=== PATIENT | female | born 1985 | race Caucasian/White ===

== ENCOUNTER → 2019-09-16 | Outpatient (CLI) | payer MEDICAID ==
[2019-09-16 09:16] LABS: Basophils % (A) 0 %; Eosinophils # (A) 0.5 k/uL (0-0.7); Eosinophils % (A) 5 %; HCT 42.6 % (34.0-46.0); HGB 13.3 gm/dL (11.4-16.0); Lymphocytes # (A) 2.7 k/uL (1.0-4.8); Lymphocytes % (A) 26 %; MCH 26.8 pg (25.0-35.0); MCHC 31.2 g/dL (31.0-37.0); Mean Platelet Volume 7.5; Monocytes # (A) 0.4 k/uL (0-1.0); Monocytes % (A) 4 %; Neutrophils # (A) 6.5 k/uL (1.3-7.7); Neutrophils % (A) 63 %; Platelet Count 374 k/uL (150-450); RBC 4.96 m/uL (3.80-5.40); RDW 13.5 % (11.5-15.5); WBC 10.2 k/uL (3.8-10.6)
[2019-09-16 17:28] LABS: African American GFR (CKD) 97.4 (60.0-200.0); Albumin 4.7 g/dL (3.80-4.90); Albumin/Globulin Ratio 1.81 (1.60-3.17); Anion Gap 9.6 mmol/L (4.00-12.00); BUN/Creat Ratio 12.22 Ratio (12.00-20.00); Calcium 9.9 mg/dL (8.7-10.3); Carbon Dioxide 26.4 mmol/L (21.6-31.8); Chol/HDL Ratio 2.8; Globulin 2.6 g/dL (1.6-3.3); Potassium 4.8 mmol/L (3.5-5.5); Total Bilirubin 0.5 mg/dL (0.3-1.2); Total Protein 7.3 g/dL (6.2-8.2)
[2019-09-16 17:36] LABS: T4, Free (Free Thyroxine) 1.1 ng/dL (0.80-1.80)
== END | disposition home or self-care (01) ==
LOC: LABWHC1 08:44
PROVIDERS: ATTEND Family Medicine
DX: N94.6 Dysmenorrhea, unspecified (principal); E66.9 Obesity, unspecified
CPT/HCPCS: 36415; 80053; 80061; 84439; 84443; 84481; 85025

== ENCOUNTER → 2021-05-15 | Outpatient (CLI) | payer MEDICAID ==
[2021-05-15 11:09] LABS: Basophils # (A) 0.1 k/uL (0-0.2); Basophils % (A) 1 %; Eosinophils # (A) 0.3 k/uL (0-0.7); Eosinophils % (A) 3 %; HCT 36.4 % (34.0-46.0); HGB 12.3 gm/dL (11.4-16.0); Lymphocytes # (A) 3.5 k/uL (1.0-4.8); Lymphocytes % (A) 34 %; MCH 28.4 pg (25.0-35.0); MCHC 33.7 g/dL (31.0-37.0); MCV 84.1 fL (80.0-100.0); Mean Platelet Volume 7.6; Monocytes # (A) 0.4 k/uL (0-1.0); Monocytes % (A) 4 %; Neutrophils # (A) 5.8 k/uL (1.3-7.7); Neutrophils % (A) 56 %; Platelet Count 396 k/uL (150-450); RBC 4.33 m/uL (3.80-5.40); RDW 14.1 % (11.5-15.5); WBC 10.3 k/uL (3.8-10.6)
== END | disposition home or self-care (01) ==
LOC: LABPAT 09:38
PROVIDERS: ATTEND Obstetrics & Gynecology
DX: Z01.812 Encounter for preprocedural laboratory examination (principal)
CPT/HCPCS: 36415; 85025

== ENCOUNTER → 2021-05-15 | Outpatient (CLI) | payer MEDICAID ==
--- NOTE | 2021-05-16 12:27 | MM ---
Reason for exam: screening (asymptomatic). Baseline mammogram. History: Took hormonal contraceptives for 5 years. Physical Findings: Nurse did not find any significant physical abnormalities on exam. MG 3D Screening Mammo W/Cad Bilateral CC and MLO view(s) were taken. The breast tissue is extremely dense which could obscure a lesion on mammography. There is no discrete abnormality. ASSESSMENT: Negative, BI-RAD 1 RECOMMENDATION: Routine screening mammogram of both breasts at age 40. Some consider bilateral ultrasound surveillance in patient with extremely dense fibroglandular tissue.
== END | disposition home or self-care (01) ==
LOC: RADMAMWWP 09:34 → MERGE 09:40
PROVIDERS: ATTEND Obstetrics & Gynecology
DX: Z12.31 Encounter for screening mammogram for malignant neoplasm of breast (principal)
CPT/HCPCS: 77063; 77067

== ENCOUNTER 2021-05-22 06:39 | Day surgery (SDC) | payer MEDICAID ==
[2021-05-18 15:11] VITALS: BMI 36.6
[~2021-05-22 06:39] MED LIST: DEXAMETHASONE SOD PHOSPHATE 4 MG/ML 1 ML VIAL IV ONE; HYDROmorphone 0.5 MG/0.5 ML SYRINGE IVP PRN; LACTATED RINGERS 1,000 ML IV SCH; LIDOCAINE 1% (10MG/ML) FOR IV START INTRADERMA PRN; MIDAZOLAM 2 MG/2 ML VIAL IV PRN; ONDANSETRON 4 MG/2 ML VIAL IVP ONE
[2021-05-22] MEDS ORDERED: LACTATED RINGERS 1,000 ML IV ONE (07:14)
[2021-05-22] MEDS ORDERED: SCOPOLAMINE 1.5MG/72HR PATCH TRANSDERM ONE (07:14)
--- NOTE | 2021-05-22 07:21 | P.HPOB ---
History of Present Illness H&P Date: 05/22/21 Chief Complaint: menorrhagia 35 year old with heavy menses presents for D&C hysteroscopy and endometrial ablation with NovaSure. Review of Systems All systems: negative Constitutional: Denies chills, Denies fever Eyes: denies blurred vision, denies pain Ears, nose, mouth and throat: Denies headache, Denies sore throat Cardiovascular: Denies chest pain, Denies shortness of breath Respiratory: Denies cough Gastrointestinal: Denies abdominal pain, Denies diarrhea, Denies nausea, Denies vomiting Genitourinary: Denies dysuria, Denies hematuria Musculoskeletal: Denies myalgias Integumentary: Denies pruritus, Denies rash Neurological: Denies numbness, Denies weakness Psychiatric: Denies anxiety, Denies depression Endocrine: Denies fatigue, Denies weight change Past Medical History Past Medical History: Syncope, Thyroid Disorder Additional Past Medical History / Comment(s): "Low thyroid, no medication at this time." "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 History of Any Multi-Drug Resistant Organisms: None Reported Past Surgical History: No Surgical Hx Reported Additional Past Surgical History / Comment(s): [place] teeth extracted. Past Anesthesia/Blood Transfusion Reactions: No Reported Reaction Additional Past Anesthesia/Blood Transfusion Reaction / Comment(s): Mom PONV. Past Psychological History: No Psychological Hx Reported Smoking Status: Never smoker Past Alcohol Use History: Occasional Past Drug Use History: None Reported - Past Family History Mother Family Medical History: Cancer Additional Family Medical History / Comment(s): from Leukemia. Medications and Allergies Home Medications Medication Instructions Recorded Confirmed Type Ibuprofen [Motrin] 800 mg PO Q8HR PRN 05/18/21 05/18/21 History Multivitamins, Thera [Multivitamin 1 tab PO DAILY 05/18/21 05/18/21 History (formulary)] Vitamin C Gummy 1 tab PO DAILY 05/18/21 History Allergies Allergy/AdvReac Type Severity Reaction Status Date / Time No Known Allergies Allergy Verified 05/18/21 15:00 Exam Osteopathic Statement: *. No significant issues noted on an osteopathic structural exam other than those noted in the History and Physical/Consult. Vital Signs Temp Pulse Resp BP Pulse Ox 05/22/21 07:04 97.8 F 79 18 148/90 100 Intake and Output 05/21/21 05/22/21 05/22/21 22:59 06:59 14:59 Other: Weight 104.8 kg Heart: Regular rate and rhythm Lungs: Clear to auscultation bilaterally Abdomen: Soft, nontender Extremities: Negative Homans sign Assessment and Plan (1) Menorrhagia Current Visit: Yes Status: Acute Code(s): N92.0 - EXCESSIVE AND FREQUENT MENSTRUATION WITH REGULAR CYCLE SNOMED Code(s): 504897860 Plan: 1. D&C hysteroscopy, endometrial ablation with NovaSure
[2021-05-22] MEDS ORDERED: fentaNYL (PF) 50 MCG/ML 2 ML AMP ONE (07:47)
[2021-05-22] MEDS ORDERED: PROPOFOL 10 MG/ML 20 ML VIAL IV ONE (07:47)
[2021-05-22] MEDS ORDERED: MIDAZOLAM 2 MG/2 ML VIAL ONE (07:47)
[2021-05-22] MEDS ORDERED: LIDOCAINE 1% INJ 10MG/ML (20 ML MDV) ONE (07:47)
[2021-05-22] MEDS ORDERED: SUCCINYLCHOLINE CHLORIDE VIAL 200 MG/10 ML VIAL IV ONE (07:47)
[2021-05-22] MEDS ORDERED: KETOROLAC 15 MG/ML 1 ML VIAL ONE (07:47)
--- NOTE | 2021-05-22 08:26 | P.OP ---
Date of Procedure: 05/22/21 Preoperative Diagnosis: 1. menorrhagia Postoperative Diagnosis: 1. menorrhagia Procedure(s) Performed: D&C, hysteroscopy, endometrial ablation with NovaSure Anesthesia: RIKA Surgeon: Marilu Hutner Estimated Blood Loss (ml): 2 IV fluids (ml): 600 Urine output (ml): 50 Pathology: other (endometrial currettings) Condition: stable Disposition: PACU Operative Findings: Cavity length of 6.5 cm, width 4.5 cm, time of ablation 37 seconds at [address] Description of Procedure: Patient is taken the operating room where general anesthesia was obtained without difficulty. She was prepped and draped in normal sterile fashion dorsal lithotomy position, legs placed in the candy cane stirrups. Bladder was drained of all urine. Weighted speculum placed in the vagina and the anterior lip the cervix was grasped with serial tooth tenaculum. The uterus sounded to 9 cm and the cervix under 2.5 cm making the cavity length 6.5 cm. The cervix was dilated to #8 Hegar dilator. Hysteroscopy was then performed. Both ostia were visualized and there was a smooth contour of the uterus. Sharp curet was then gently used to obtain endometrial curettings. The NovaSure was introduced into the uterus with a cavity length of 6.5 cm, width 4.5 cm. after cavity assessment was passed, the time of ablation was 37 seconds at [address]. Hysteroscopy was again performed and adequate ablation was noted. All instruments removed from the vagina. Patient tolerated the procedure well, sponge and instrument counts were correct 2 and she was taken to recovery in stable condition.
[2021-05-22 08:41] VITALS: RESP 16; TEMP 98
[2021-05-22 09:42] VITALS: BP 134/79; PULSE 71
== END 2021-05-22 10:05 | disposition home or self-care (01) ==
LOC: OR 06:39
PROVIDERS: ATTEND Obstetrics & Gynecology
DX: N92.0 Excessive and frequent menstruation with regular cycle (principal); Z79.1 Long term (current) use of non-steroidal anti-inflammatories (NSAID)
CPT/HCPCS: 58563; 81025; 88305; J2250; J0330; J1100; J2405; J2001; J3010; J1885; J2704; J1170

== ENCOUNTER 2021-05-24 21:05 | Observation (INO) | payer MEDICAID ==
[2021-05-24] MEDS ORDERED: ONDANSETRON 4 MG/2 ML VIAL IVP STA (22:03)
[2021-05-24] MEDS ORDERED: HYDROmorphone 0.5 MG/0.5 ML SYRINGE IVP STA (22:03)
[2021-05-24] MEDS ORDERED: SODIUM CHLORIDE 0.9% 1,000 ML IV STA (22:03)
[2021-05-24] MEDS ORDERED: ACETAMINOPHEN TAB 500 MG TAB PO STA (22:04)
[2021-05-24 22:48] LABS: Basophils % (A) 0 %; Eosinophils # (A) 0.3 k/uL (0-0.7); Eosinophils % (A) 1 %; HCT 34.7 % (34.0-46.0); HGB 11.3 gm/dL (11.4-16.0); Lymphocytes # (A) 1.3 k/uL (1.0-4.8); Lymphocytes % (A) 6 %; MCH 28.1 pg (25.0-35.0); MCHC 32.5 g/dL (31.0-37.0); MCV 86.3 fL (80.0-100.0); Mean Platelet Volume 8.7; Monocytes # (A) 0.8 k/uL (0-1.0); Monocytes % (A) 4 %; Neutrophils # (A) 17.8 k/uL (1.3-7.7); Neutrophils % (A) 88 %; Platelet Count 280 k/uL (150-450); RBC 4.02 m/uL (3.80-5.40); RDW 13.7 % (11.5-15.5); WBC 20.3 k/uL (3.8-10.6)
[2021-05-24 22:57] LABS: Amorphous Sediment,Urine Occasional /hpf; Appearance,Urine Cloudy (Clear); Bilirubin,Urine 1+ (Negative); Blood,Urine Large (Negative); Color,Urine Yellow; Glucose,Urine (UA) Negative (Negative); Ketones,Urine 1+ (Negative); Leukocyte Esterase,Urine Large (Negative); Mucus,Urine Occasional /hpf; Nitrite,Urine Negative (Negative); PH, Urine 6.5 (5.0-8.0); Protein,Urine 1+ (Negative); RBC,Urine 35 /hpf (0-5); Specific Gravity,Urine 1.028 (1.001-1.035); Squamous Epithelial Cell,Urine 2 /hpf (0-4); WBC,Urine 61 /hpf (0-5)
[2021-05-24 22:58] LABS: ALT 13 U/L (4-34); AST 16 U/L (14-36); African American GFR (CKD) >90 (>60 ml/min/1.73 sqM); Albumin 3.8 g/dL (3.5-5.0); Alkaline Phosphatase 97 U/L (38-126); Anion Gap 10 mmol/L; Blood Urea Nitrogen 13 mg/dL (7-17); Calcium 9.3 mg/dL (8.4-10.2); Carbon Dioxide 19 mmol/L (22-30); Chloride 106 mmol/L (98-107); Glucose 126 mg/dL (74-99); Lipase 53 U/L (23-300); Non-African American GFR(CKD) >90 (>60 ml/min/1.73 sqM); Sodium 135 mmol/L (137-145); Total Protein 7.1 g/dL (6.3-8.2)
--- NOTE | 2021-05-24 23:37 | CT ---
EXAMINATION TYPE: CT abdomen pelvis w con DATE OF EXAM: 05/24/2021 COMPARISON: None HISTORY: RUQ pain and fever after recent D&C /ablation on 05-22-21 CT DLP: 1660.2 mGycm Automated exposure control for dose reduction was used. CONTRAST: Performed with IV Contrast, patient injected with 100 mL of Isovue 300. Images obtained from the diaphragm to the floor the pelvis with IV contrast. The lung bases are clear of consolidation. There is no pleural effusion. Heart size is normal. There is no pericardial effusion. Liver spleen stomach pancreas gallbladder appear normal. The bile ducts a re nondilated. There is no adrenal mass. Kidneys show satisfactory contrast opacification. There is no hydronephrosi s. Ureters are not dilated. Appendix appears normal. There is no retroperitoneal adenopathy. Bladder distends smoothly. There is no inguinal hernia. Uterus is anteverted. There is some enlargement of th e endometrial cavity with fluid. There are small air bubble in the uterine fundus. There is no free f luid in the pelvis. There is no adnexal mass. There is no mesenteric edema. There is no ascites or free air. There is no bowel obstruction. The lumbar vertebra have fairly normal spacing and alignment. There is bilateral L5 spondylolysis wit hout spondylolisthesis. Bony pelvis is intact. Hip joints are intact. IMPRESSION: Changes in the uterine cavity consistent with recent surgery. There is fluid and small air bubble in the endometrial cavity that raises the possibility of endometritis. No significant free fluid in the pelvis. Normal appendix. Small bilateral ovarian cysts.
--- NOTE | 2021-05-24 23:55 | ED ---
Abdominal Pain HPI - General Chief Complaint: Abdominal Pain Stated Complaint: Post Op Abd Pain Time Seen by Provider: 05/24/21 21:24 Source: patient Mode of arrival: ambulatory Limitations: no limitations - History of Present Illness Initial Comments: 35 year-old female patient presents to the emergency department for evaluation of generalized abdominal pain and fever. States she had uterine ablation with D&C on Saturday with Dr. Hunter. She developed fever yesterday around 2pm. States that gradually her abdominal pain worsened. States it started as lower abdominal cramping and generally worsened to include her entire abdomen and back. She is unable to take deep breaths or move without significant pain to the abdomen. She reports some nausea, denies vomiting. Denies any hematuria, dysuria, urinary urgency, or frequency. Denies significant cough. States she does have some thin, watery, bloody discharge from the vagina. She did have an episode of diarrhea last night. No further episodes. - Related Data Home Medications Medication Instructions Recorded Confirmed Ibuprofen [Motrin] 800 mg PO Q8HR PRN 05/18/21 05/18/21 Multivitamins, Thera [Multivitamin 1 tab PO DAILY 05/18/21 05/18/21 (formulary)] Vitamin C Gummy 1 tab PO DAILY 05/18/21 Previous Rx's Medication Instructions Recorded Ibuprofen [Motrin] 600 mg PO Q6HR PRN #30 tab 05/22/21 Allergies Allergy/AdvReac Type Severity Reaction Status Date / Time No Known Allergies Allergy Verified 05/24/21 21:17 Review of Systems ROS Statement: Those systems with pertinent positive or pertinent negative responses have been documented in the HPI. ROS Other: All systems not noted in ROS Statement are negative. Past Medical History Past Medical History: Syncope Additional Past Medical History / Comment(s): arrythmia tacycardia to bradycar adriane, shingles, History of Any Multi-Drug Resistant Organisms: None Reported Past Surgical History: No Surgical Hx Reported Smoking Status: Never smoker Past Alcohol Use History: Occasional Past Drug Use History: None Reported General Exam Limitations: no limitations General appearance: alert, in no apparent distress, other (This is a well- developed, well-nourished adult female patient in mild distress related to pain.) Eye exam: Present: normal appearance, PERRL, EOMI. Absent: scleral icterus, conjunctival injection, periorbital swelling ENT exam: Present: normal exam, normal oropharynx, mucous membranes moist Respiratory exam: Present: normal lung sounds bilaterally. Absent: respiratory distress, wheezes, rales, rhonchi, stridor Cardiovascular Exam: Present: normal rhythm, tachycardia, normal heart sounds. Absent: systolic murmur, diastolic murmur, rubs, gallop, clicks GI/Abdominal exam: Present: soft, tenderness (Generalized), normal bowel sounds. Absent: distended, guarding, rebound, rigid Neurological exam: Present: alert, oriented X3, CN II-XII intact Psychiatric exam: Present: normal affect, normal mood Skin exam: Present: warm, dry, intact, normal color. Absent: rash Course Vital Signs 05/24/21 05/24/21 05/25/21 21:12 22:17 00:35 Temperature 101.8 F H 98.1 F Pulse Rate 113 H 105 H 74 Respiratory 20 16 18 Rate Blood Pressure 112/68 118/78 114/70 O2 Sat by Pulse 97 97 98 Oximetry Medical Decision Making - Medical Decision Making 35-year-old female patient presented to the emergency department today for evaluation of generalized abdominal pain and fever. She is postop day #2 after having uterine ablation and D&C with Dr. Hunter. Physical examination did reveal generalized abdominal tenderness. No guarding. She was febrile upon arrival at 101.8. Labs reviewed and did reveal white blood cell count at 20.3 with left shift with neutrophils at 17.8. Lactic acid was 0.9. Urinalysis did show bloody contamination. Covid test was negative. CT abdomen and pelvis was obtained and did show uterine changes consistent with recent surgery, small air bubble in the uterine fundus fluid in the endometrial cavity which could be consistent with recent surgery or possibly endometritis. I did discuss the case with on-call [facility] [employer] Dr. Choudhury who was agreeable with starting broad spectrum antibiotics and admission for further evaluation and monitoring. Pain medication will be ordered. Findings and plan have been discussed with the patient. She is agreeable. Case discussed with my attending Dr. Tomas. - Lab Data Result diagrams: 05/24/21 22:20 05/24/21 22:20 Lab Results 05/24/21 05/24/21 05/24/21 Range/Units 22:20 22:20 22:20 WBC 20.3 H (3.8-10.6) k/uL RBC 4.02 (3.80-5.40) m/uL Hgb 11.3 L (11.4-16.0) gm/dL Hct 34.7 (34.0-46.0) % MCV 86.3 (80.0-100.0) fL MCH 28.1 (25.0-35.0) pg MCHC 32.5 (31.0-37.0) g/dL RDW 13.7 (11.5-15.5) % Plt Count 280 (150-450) k/uL MPV 8.7 Neutrophils % 88 % Lymphocytes % 6 % Monocytes % 4 % Eosinophils % 1 % Basophils % 0 % Neutrophils # 17.8 H (1.3-7.7) k/uL Lymphocytes # 1.3 (1.0-4.8) k/uL Monocytes # 0.8 (0-1.0) k/uL Eosinophils # 0.3 (0-0.7) k/uL Basophils # 0.0 (0-0.2) k/uL Sodium 135 L (137-145) mmol/L Potassium 4.0 (3.5-5.1) mmol/L Chloride 106 (98-107) mmol/L Carbon Dioxide 19 L (22-30) mmol/L Anion Gap 10 mmol/L BUN 13 (7-17) mg/dL Creatinine 0.66 (0.52-1.04) mg/dL Est GFR (CKD-EPI)AfAm >90 (>60 ml/min/1.73 sqM) Est GFR (CKD-EPI)NonAf >90 (>60 ml/min/1.73 sqM) Glucose 126 H (74-99) mg/dL Plasma Lactic Acid Walter (0.7-2.0) mmol/L Calcium 9.3 (8.4-10.2) mg/dL Total Bilirubin 1.0 (0.2-1.3) mg/dL AST 16 (14-36) U/L ALT 13 (4-34) U/L Alkaline Phosphatase 97 (38-126) U/L Total Protein 7.1 (6.3-8.2) g/dL Albumin 3.8 (3.5-5.0) g/dL Lipase 53 (23-300) U/L Urine Color Yellow Urine Appearance Cloudy H (Clear) Urine pH 6.5 (5.0-8.0) Ur Specific [place] 1.028 (1.001-1.035) Urine Protein 1+ H (Negative) Urine Glucose (UA) Negative (Negative) Urine Ketones 1+ H (Negative) Urine Blood Large H (Negative) Urine Nitrite Negative (Negative) Urine Bilirubin 1+ H (Negative) Urine Urobilinogen 3.0 (<2.0) mg/dL Ur Leukocyte Esterase Large H (Negative) Urine RBC 35 H (0-5) /hpf Urine WBC 61 H (0-5) /hpf Ur Squamous Epith Cells 2 (0-4) /hpf Amorphous Sediment Occasional H (None) /hpf Urine Mucus Occasional H (None) /hpf Coronavirus (PCR) (Not Detectd) 05/24/21 05/25/21 Range/Units 22:20 00:32 WBC (3.8-10.6) k/uL RBC (3.80-5.40) m/uL Hgb (11.4-16.0) gm/dL Hct (34.0-46.0) % MCV (80.0-100.0) fL MCH (25.0-35.0) pg MCHC (31.0-37.0) g/dL RDW (11.5-15.5) % Plt Count (150-450) k/uL MPV Neutrophils % % Lymphocytes % % Monocytes % % Eosinophils % % Basophils % % Neutrophils # (1.3-7.7) k/uL Lymphocytes # (1.0-4.8) k/uL Monocytes # (0-1.0) k/uL Eosinophils # (0-0.7) k/uL Basophils # (0-0.2) k/uL Sodium (137-145) mmol/L Potassium (3.5-5.1) mmol/L Chloride (98-107) mmol/L Carbon Dioxide (22-30) mmol/L Anion Gap mmol/L BUN (7-17) mg/dL Creatinine (0.52-1.04) mg/dL Est GFR (CKD-EPI)AfAm (>60 ml/min/1.73 sqM) Est GFR (CKD-EPI)NonAf (>60 ml/min/1.73 sqM) Glucose (74-99) mg/dL Plasma Lactic Acid Walter 0.9 (0.7-2.0) mmol/L Calcium (8.4-10.2) mg/dL Total Bilirubin (0.2-1.3) mg/dL AST (14-36) U/L ALT (4-34) U/L Alkaline Phosphatase (38-126) U/L Total Protein (6.3-8.2) g/dL Albumin (3.5-5.0) g/dL Lipase (23-300) U/L Urine Color Urine Appearance (Clear) Urine pH (5.0-8.0) Ur Specific [place] (1.001-1.035) Urine Protein (Negative) Urine Glucose (UA) (Negative) Urine Ketones (Negative) Urine Blood (Negative) Urine Nitrite (Negative) Urine Bilirubin (Negative) Urine Urobilinogen (<2.0) mg/dL Ur Leukocyte Esterase (Negative) Urine RBC (0-5) /hpf Urine WBC (0-5) /hpf Ur Squamous Epith Cells (0-4) /hpf Amorphous Sediment (None) /hpf Urine Mucus (None) /hpf Coronavirus (PCR) Not Detected (Not Detectd) - Radiology Data Radiology results: report reviewed, image reviewed CT abdomen and pelvis with contrast was obtained. Report was reviewed in its entirety. Impression by Dr. Christine shows changes in the uterine cavity c onsistent with recent surgery. There is fluid in small air bubble in the endometrial cavity that raises the possibility of endometritis. No significant free fluid in the pelvis. Normal appendix. Small bilateral ovarian cysts. Disposition Clinical Impression: Endometritis Disposition: ADMITTED IP TO THIS [facility] Condition: Serious Decision to Admit Reason: Admit from Decision Date: 05/25/21 Decision Time: 00:13
[2021-05-25] MEDS ORDERED: PIPERACILLIN-TAZOBACTAM 3.375 GM in SODIUM CHLORIDE 0.9% 100 ML IVPB STA ×2
[2021-05-25] MEDS ORDERED: ONDANSETRON 4 MG/2 ML VIAL IVP PRN (00:06)
[2021-05-25] MEDS ORDERED: NALOXONE 0.4 MG/ML 1 ML VIAL IV PRN (00:06)
[2021-05-25] MEDS: SODIUM CHLORIDE 0.9% 1,000 ML IV SCH ×3 (00:29→16:04)
[2021-05-25] MEDS ORDERED: PIPERACILLIN-TAZOBACTAM 3.375 GM in SODIUM CHLORIDE 0.9% 100 ML IVPB SCH ×3 (00:45)
--- NOTE | 2021-05-25 00:52 | XR ---
EXAMINATION TYPE: XR chest 2V DATE OF EXAM: 05/25/2021 COMPARISON: 04/17/2013 HISTORY: Fever TECHNIQUE: FINDINGS: Heart and mediastinum are normal. Lungs are clear. Diaphragm is normal. Bony thorax appears normal. Pulmonary vascularity is normal. IMPRESSION: Normal chest. No change.
[2021-05-25] MEDS: HYDROmorphone 0.5 MG/0.5 ML SYRINGE IVP PRN ×3 (03:06→12:23)
[2021-05-25] MEDS: ACETAMINOPHEN TAB 325 MG TAB PO PRN ×2 (04:45→14:37)
[2021-05-25 07:10] LABS: Basophils % (A) 0 %; Eosinophils # (A) 0.4 k/uL (0-0.7); Eosinophils % (A) 3 %; HCT 31.5 % (34.0-46.0); HGB 10.1 gm/dL (11.4-16.0); Lymphocytes % (A) 14 %; MCH 28.3 pg (25.0-35.0); MCHC 32.1 g/dL (31.0-37.0); MCV 88.1 fL (80.0-100.0); Monocytes # (A) 0.6 k/uL (0-1.0); Monocytes % (A) 4 %; Neutrophils # (A) 10.9 k/uL (1.3-7.7); Neutrophils % (A) 78 %; Platelet Count 238 k/uL (150-450); RBC 3.57 m/uL (3.80-5.40); RDW 13.8 % (11.5-15.5)
[2021-05-25] MEDS ORDERED: GENTAMICIN PER PHARMACY MISCELLANE PRN (07:55)
[2021-05-25] MEDS: CLINDAMYCIN 900 MG in DEXTROSE 5% IN WATER 50 ML IVPB SCH ×4 (08:29→16:03)
[2021-05-25] MEDS: IBUPROFEN 600 MG TAB PO PRN ×2 (08:29→16:05)
[2021-05-25] MEDS: GENTAMICIN 400 MG in SODIUM CHLORIDE 0.9% 100 ML IVPB SCH (09:50)
--- NOTE | 2021-05-25 11:57 | P.HPOB ---
History of Present Illness H&P Date: 05/25/21 Chief Complaint: Abdominal pain, fever This is a 35 y.o. female, 3, para 2, who presented to ER last night complaining of worsening abdominal pain and fever. She had a D&C, hysteroscopy and Novasure endometrial ablation by Dr. Hunter on 05/22/2021. She started noti cing a fever on 05/23 and then worsening abdominal pain on 05/24. She states her whole abdomen hurts, but worst in her lower abdomen. Denies and difficulty with urination or bowel movements. Denies any difficulty breathing other than it hurts her abdomen to take a deep breath. Since her admission, the pain medication helps her pain, but it is back as soon as the medication wears off. CT scan showed small amount of air and some fluid within the endometrium, but otherwise it was negative. Her WBC count was 20,000. OB Hx: . 2 vaginal deliveries. 1 miscarriage, no D&C. 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 . 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 Hunter) Past Anesthesia/Blood Transfusion Reactions: No Reported Reaction Past Psychological History: No Psychological Hx Reported Smoking Status: Never smoker Past Alcohol Use History: Occasional Past Drug Use History: None Reported - Past Family History Mother Family Medical History: Cancer Father Family Medical History: No Reported History Medications and Allergies Home Medications Medication Instructions Recorded Confirmed Type Multivitamins, Thera [Multivitamin 1 tab PO DAILY 05/18/21 05/25/21 History (formulary)] Vitamin C Gummy 1 tab PO DAILY 05/18/21 05/25/21 History Ibuprofen [Motrin] 600 mg PO Q6HR PRN #30 tab 05/22/21 05/25/21 Rx Allergies Allergy/AdvReac Type Severity Reaction Status Date / Time No Known Allergies Allergy Verified 05/24/21 21:17 Exam Osteopathic Statement: *. No significant issues noted on an osteopathic structural exam other than those noted in the History and Physical/Consult. Vital Signs Temp Pulse Pulse Resp BP BP Pulse Ox 05/25/21 08:10 98.1 F 76 16 110/71 98 05/25/21 03:09 97.9 F 60 18 101/64 99 05/25/21 00:35 98.1 F 74 18 114/70 98 05/24/21 22:17 105 H 16 118/78 97 05/24/21 21:12 101.8 F H 113 H 20 112/68 97 Intake and Output 05/24/21 05/25/21 05/25/21 22:59 06:59 14:59 Intake Total 620 240 Balance 620 240 Intake: Intake, IV Titration 620 Amount Piperacillin-Tazobactam 3 100 .375 gm In Sodium Chloride 0.9% 100 ml @ 200 mls/hr IVPB ONCE STA Rx#:[id number] Sodium Chloride 0.9% 1, 520 000 ml @ 130 mls/hr IV . Q7H42M [facility] Rx#:[id number] Oral 240 Other: Voiding Method Toilet # Voids 2 Weight 99.79 kg 106 kg Gen: well-developed well nourished female in no acute distress HEENT: with normal limits Heart: regular rate and rhythm Lungs: clear to auscultation bilaterally Abdomen: soft, diffusely tender, worse in lower abdomen [id number] serosanguinous discharge Extremities: neg. Raphael's Results Result Diagrams: 05/25/21 06:59 05/24/21 22:20 Abnormal Lab Results - Last 24 Hours (Table) 05/24/21 05/24/21 05/24/21 Range/Units 22:20 22:20 22:20 WBC 20.3 H (3.8-10.6) k/uL RBC (3.80-5.40) m/uL Hgb 11.3 L (11.4-16.0) gm/dL Hct (34.0-46.0) % Neutrophils # 17.8 H (1.3-7.7) k/uL Sodium 135 L (137-145) mmol/L Carbon Dioxide 19 L (22-30) mmol/L Glucose 126 H (74-99) mg/dL Urine Appearance Cloudy H (Clear) Urine Protein 1+ H (Negative) Urine Ketones 1+ H (Negative) Urine Blood Large H (Negative) Urine Bilirubin 1+ H (Negative) Ur Leukocyte Esterase Large H (Negative) Urine RBC 35 H (0-5) /hpf Urine WBC 61 H (0-5) /hpf Amorphous Sediment Occasional H (None) /hpf Urine Mucus Occasional H (None) /hpf 05/25/21 Range/Units 06:59 WBC 14.0 H (3.8-10.6) k/uL RBC 3.57 L (3.80-5.40) m/uL Hgb 10.1 L (11.4-16.0) gm/dL Hct 31.5 L (34.0-46.0) % Neutrophils # 10.9 H (1.3-7.7) k/uL Sodium (137-145) mmol/L Carbon Dioxide (22-30) mmol/L Glucose (74-99) mg/dL Urine Appearance (Clear) Urine Protein (Negative) Urine Ketones (Negative) Urine Blood (Negative) Urine Bilirubin (Negative) Ur Leukocyte Esterase (Negative) Urine RBC (0-5) /hpf Urine WBC (0-5) /hpf Amorphous Sediment (None) /hpf Urine Mucus (None) /hpf Microbiology - Last 24 Hours (Table) 05/24/21 22:20 Urine Culture - Preliminary Urine,Voided Chest x-ray: report reviewed CT scan - abdomen: report reviewed CT scan - pelvis: report reviewed Assessment and Plan (1) Endometritis Current Visit: Yes Status: Acute Code(s): N71.9 - INFLAMMATORY DISEASE OF UTERUS, UNSPECIFIED SNOMED Code(s): 05604992 Plan: Admission for IV antibiotics. Was initially started on Zosyn, but will switch to Clindamycin and Gentamycin. Will continue with pain control. WBC has come down to 14,000.
[2021-05-25] MEDS ORDERED: GENTAMICIN 80 MG/2 ML (MDV) VIAL ONE (22:59)
[2021-05-25] MEDS ORDERED: SODIUM CHLORIDE 0.9% 100 ML BAG ONE (22:59)
[2021-05-26] MEDS: CLINDAMYCIN 900 MG in DEXTROSE 5% IN WATER 50 ML IVPB SCH ×6 (00:50→16:00)
[2021-05-26] MEDS: IBUPROFEN 600 MG TAB PO PRN (05:49)
[2021-05-26] MEDS: SODIUM CHLORIDE 0.9% 1,000 ML IV SCH ×2 (07:20→07:58)
[2021-05-26 07:22] LABS: African American GFR (CKD) >90 (>60 ml/min/1.73 sqM); Non-African American GFR(CKD) >90 (>60 ml/min/1.73 sqM)
[2021-05-26 07:29] LABS: Basophils % (A) 0 %; Eosinophils # (A) 0.5 k/uL (0-0.7); Eosinophils % (A) 5 %; HGB 10.1 gm/dL (11.4-16.0); Lymphocytes # (A) 1.8 k/uL (1.0-4.8); Lymphocytes % (A) 16 %; MCHC 31.7 g/dL (31.0-37.0); MCV 88.2 fL (80.0-100.0); Mean Platelet Volume 8.2; Monocytes # (A) 0.5 k/uL (0-1.0); Monocytes % (A) 4 %; Neutrophils # (A) 8.1 k/uL (1.3-7.7); Neutrophils % (A) 74 %; Platelet Count 279 k/uL (150-450); RBC 3.62 m/uL (3.80-5.40); RDW 13.7 % (11.5-15.5)
[2021-05-26] MEDS ORDERED: SODIUM CHLORIDE 0.9% 1,000 ML IV SCH (08:15)
--- NOTE | 2021-05-26 08:23 | P.PN ---
Subjective Progress Note Date: 05/26/21 Principal diagnosis: Endometritis Patient states her pain is better than yesterday. She has not had much of an appetite since yesterday. She has not had a bowel movement since admission. She states she does still have some lower abdominal pain but not nearly as severe as yesterday. She has not used any Dilaudid since early yesterday. Objective - Vital Signs Vital signs: Vital Signs Temp 98 F 05/26/21 01:04 Pulse 71 05/26/21 01:04 Resp 18 05/26/21 01:04 BP 101/65 05/26/21 01:04 Pulse Ox 98 05/26/21 01:04 Intake & Output 05/25/21 05/26/21 05/26/21 18:59 06:59 18:59 Intake Total 240 Balance 240 Intake: Oral 240 Other: # Voids 3 3 1 - Constitutional General appearance: Present: no acute distress - Gastrointestinal Gastrointestinal Comment(s): Mildly tender throughout abdomen. No guarding or rebound is noted. General gastrointestinal: Present: hyperactive bowel sounds - Labs CBC & Chem 7: 05/26/21 06:08 05/26/21 06:08 Labs: Abnormal Lab Results - Last 24 Hours (Table) 05/26/21 Range/Units 06:08 WBC 11.0 H (3.8-10.6) k/uL RBC 3.62 L (3.80-5.40) m/uL Hgb 10.1 L (11.4-16.0) gm/dL Hct 32.0 L (34.0-46.0) % Neutrophils # 8.1 H (1.3-7.7) k/uL Microbiology - Last 24 Hours (Table) 05/24/21 23:00 Blood Culture - Preliminary Blood No Growth after 24 hours 05/24/21 22:20 Blood Culture - Preliminary Blood No Growth after 24 hours 05/24/21 22:20 Urine Culture - Preliminary Urine,Voided Assessment and Plan Assessment: Endometritis (1) Endometritis Current Visit: Yes Status: Acute Code(s): N71.9 - INFLAMMATORY DISEASE OF UTERUS, UNSPECIFIED SNOMED Code(s): 29570867 Plan: Will plan to continue antibiotics at least through today and possibly into tomorrow morning. Her white count has improved from 20,000 on admission down to 11,000 this morning. She has been afebrile since admission. I have advised her that I will check back later today this evening to see if she is able to go home.
[2021-05-26] MEDS: GENTAMICIN 400 MG in SODIUM CHLORIDE 0.9% 100 ML IVPB SCH (08:56)
[2021-05-26] MEDS ORDERED: LACTOBACILLUS ACIDOPH & BULGAR 1 EACH PACKET PO SCH (09:00)
[2021-05-26 14:18] VITALS: BP 119/73; PULSE 90; RESP 16; TEMP 98.5
--- NOTE | 2021-05-26 18:19 | P.DS ---
Providers Date of admission: 05/25/21 01:17 Expected date of discharge: 05/26/21 Attending physician: Delilah Choudhury Primary care physician: Etienne Gordon - Discharge Diagnosis(es) (1) Endometritis Current Visit: Yes Status: Acute Hospital Course: This is a 35-year-old female who recently underwent a dilation and curettage with hysteroscopy and NovaSure endometrial ablation by Dr. Hunter on 05/22/2021, who presented with abdominal pain, fever, and elevated white count. She was started on initially Zosyn from the ER and then switched to clindamycin and gentamicin for presumptive treatment of endometritis. Her white count went down to and 14,000 the first day and 11,000 the second day. Her pain significantly improved however she still has some lower cramping. Blood cultures are negative so far. Her urine culture did culture out greater than 100,000 of gram-negative bacilli, sensitivity and ID are still pending. Patient is anxious to go home. She will be sent home with Bactrim DS twice a day for 7 days. She is advised to follow up with Dr. Hunter in the office in approximately one week. If sensitivity shows that it is not sensitive to Bactrim, this will be changed. She is advised no intercourse until seen by Dr. Hunter. Patient Condition at Discharge: Serious Plan - Discharge Summary Discharge Rx Participant: Yes New Discharge Prescriptions: New Sulfamethox-Tmp 800-160Mg [Bactrim DS 800-160 mg] 1 tab PO Q12HR #14 tab No Action Multivitamins, Thera [Multivitamin (formulary)] 1 tab PO DAILY Vitamin C Gummy 1 tab PO DAILY Ibuprofen [Motrin] 600 mg PO Q6HR PRN #30 tab PRN Reason: Mild Pain Or Fever >= 100.5 Discharge Medication List Multivitamins, Thera [Multivitamin (formulary)] 1 tab PO DAILY 05/18/21 [History] Vitamin C Gummy 1 tab PO DAILY 05/18/21 [History] Ibuprofen [Motrin] 600 mg PO Q6HR PRN #30 tab 05/22/21 [Rx] Sulfamethox-Tmp 800-160Mg [Bactrim DS 800-160 mg] 1 tab PO Q12HR #14 tab 05/26/21 [Rx] Follow up Appointment(s)/Referral(s): Chris Gordon MD [Primary Care Provider] - 1-2 days Marilu Hunter DO [Doctor of Osteopathic Medicine] - 1 Week Activity/Diet/Wound Care/Special Instructions: Activity as tolerated. Diet as tolerated. May shower but no tub baths for 1 week. No intercourse for 1 week. Discharge Disposition: HOME SELF-CARE
[2021-05-26] MEDS ORDERED: SODIUM CHLORIDE 0.9% 100 ML BAG ONE (22:59)
[2021-05-26] MEDS ORDERED: GENTAMICIN 80 MG/2 ML (MDV) VIAL ONE (22:59)
== END 2021-05-26 18:44 | disposition home or self-care (01) ==
LOC: EC 21:05 → 6PED 05-25 01:17
PROVIDERS: ADMIT Obstetrics & Gynecology; ATTEND Obstetrics & Gynecology
DX: N71.9 Inflammatory disease of uterus, unspecified (principal); R00.1 Bradycardia, unspecified; R00.0 Tachycardia, unspecified; R11.0 Nausea; R19.7 Diarrhea, unspecified; N83.202 Unspecified ovarian cyst, left side; N83.201 Unspecified ovarian cyst, right side; B96.89 Other specified bacterial agents as the cause of diseases classified elsewhere; Z20.822 Contact with and (suspected) exposure to COVID-19; Z80.9 Family history of malignant neoplasm, unspecified; Z98.890 Other specified postprocedural states
CPT/HCPCS: 96361 ×2; 96365; 96366 ×2; 96367; 96376; 96375; 99285; 36415; 80053; 82565; 83605; 83690; 85025 ×3; 81001; 87040; 80170; 87086; 87077; 87186; 87635; 71046; 74177; G0378 ×2; J2543; J2405 ×2; J1580 ×2; J1170 ×2; Q9967

== ENCOUNTER → 2021-11-06 | Outpatient (CLI) | payer MEDICAID ==
[2021-11-06 14:19] LABS: Basophils # (A) 0.06 X 10*3/uL (0.00-0.10); Basophils % (A) 0.7 %; Eosinophils # (A) 0.39 X 10*3/uL (0.04-0.35); Eosinophils % (A) 4.2 %; HCT 37.6 % (37.2-46.3); HGB 11.8 g/dL (12.0-15.0); Immature Grans, Automated 0.2 %; Lymphocytes # (A) 2.76 X 10*3/uL (0.90-5.00); MCH 26.5 pg (27.0-32.0); MCHC 31.4 g/dL (32.0-37.0); MCV 84.3 fL (80.0-97.0); Mean Platelet Volume 10.8 fL (9.5-12.2); Monocytes # (A) 0.54 X 10*3/uL (0.20-1.00); Monocytes % (A) 5.9 %; NRBC Per 100 WBC 0 /100 WBCS (0.0-0.0); Neutrophils # (A) 5.42 X 10*3/uL (1.80-7.70); Platelet Count 340 X 10*3/uL (140-440); RBC 4.46 X 10*6/uL (4.10-5.20); RDW 15.1 % (11.5-14.5); WBC 9.19 X 10*3/uL (4.50-10.00)
[2021-11-06 15:53] LABS: Anion Gap 19.2 mmol/L (10.00-18.00); BUN/Creat Ratio 21.06 Ratio (12.00-20.00); Blood Urea Nitrogen 17.1 mg/dL (9.0-27.0); Calcium 9.9 mg/dL (8.7-10.3); Carbon Dioxide 16.2 mmol/L (20.0-27.5); Non-African American GFR(CKD) 93.2 (60.0-200.0); Potassium 4.8 mmol/L (3.5-5.5)
== END | disposition home or self-care (01) ==
LOC: LABPAT 08:22
PROVIDERS: ATTEND Obstetrics & Gynecology
DX: Z01.812 Encounter for preprocedural laboratory examination (principal)
CPT/HCPCS: 36415; 80048; 85025

== ENCOUNTER 2021-11-10 05:33 | Inpatient (IN) | payer MEDICAID ==
[2021-11-06 15:09] VITALS: BMI 36.6
[2021-11-10] MEDS ORDERED: ONDANSETRON 4 MG/2 ML VIAL IVP ONE (05:52)
[2021-11-10] MEDS ORDERED: LIDOCAINE 1% (10MG/ML) FOR IV START INTRADERMA PRN (05:52)
[2021-11-10] MEDS ORDERED: DEXAMETHASONE SOD PHOSPHATE 4 MG/ML 1 ML VIAL IV ONE (05:52)
[2021-11-10] MEDS ORDERED: HYDROmorphone 0.5 MG/0.5 ML SYRINGE IVP PRN (05:52)
[2021-11-10] MEDS ORDERED: MIDAZOLAM 2 MG/2 ML VIAL IV PRN (05:52)
[2021-11-10] MEDS: LACTATED RINGERS 1,000 ML IV SCH (06:04)
--- NOTE | 2021-11-10 06:04 | P.HPOB ---
History of Present Illness H&P Date: 11/10/21 Chief Complaint: menorrhagia 36 year old presents or Total laparoscopic hysterectomy bilateral salpingectomy using da caitlin and diagnostic cystosopy. She continues to have heavy and prolonged periods despite Novasure ablation last year. Review of Systems All systems: negative Constitutional: Denies chills, Denies fever Eyes: denies blurred vision, denies pain Ears, nose, mouth and throat: Denies headache, Denies sore throat Cardiovascular: Denies chest pain, Denies shortness of breath Respiratory: Denies cough Gastrointestinal: Denies abdominal pain, Denies diarrhea, Denies nausea, Denies vomiting Genitourinary: Denies dysuria, Denies hematuria Musculoskeletal: Denies myalgias Integumentary: Denies pruritus, Denies rash Neurological: Denies numbness, Denies weakness Psychiatric: Denies anxiety, Denies depression Endocrine: Denies fatigue, Denies weight change Past Medical History Past Medical History: Syncope Additional Past Medical History / Comment(s): PAST HX shingles, 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 MENSES WITH ENDOMETRIOSIS History of Any Multi-Drug Resistant Organisms: None Reported Past Surgical History: Uterine Ablation Additional Past Surgical History / Comment(s): U/A 05/2021- Past Anesthesia/Blood Transfusion Reactions: No Reported Reaction Smoking Status: Never smoker - Past Family History Mother Family Medical History: Cancer Father Family Medical History: No Reported History Medications and Allergies Home Medications Medication Instructions Recorded Confirmed Type No Known Home Medications 11/06/21 11/06/21 History Allergies Allergy/AdvReac Type Severity Reaction Status Date / Time No Known Allergies Allergy Verified 11/06/21 14:57 Exam Osteopathic Statement: *. No significant issues noted on an osteopathic structural exam other than those noted in the History and Physical/Consult. Heart: RRR Lungs: CTAB Abdomen: soft, nontender Extremeties: neg meredith's Assessment and Plan (1) Menorrhagia Current Visit: No Status: Acute Code(s): N92.0 - EXCESSIVE AND FREQUENT MENSTRUATION WITH REGULAR CYCLE SNOMED Code(s): 942038593 Plan: 1. Total laparoscopic hysterectomy bilateral salpingectomy using da caitlin and diagnostic cystosopy. possible JERMAINE BSO
[2021-11-10] MEDS ORDERED: MIDAZOLAM 2 MG/2 ML VIAL IVP ONE (06:59)
[2021-11-10] MEDS ORDERED: fentaNYL (PF) 50 MCG/ML 2 ML AMP IVP ONE (06:59)
[2021-11-10] MEDS ORDERED: SUCCINYLCHOLINE CHLORIDE 100 MG/5 ML SYR IV ONE (07:11)
[2021-11-10] MEDS ORDERED: ROPIVACAINE 5 MG/ML 30 ML VIAL ONE (07:11)
[2021-11-10] MEDS ORDERED: PROPOFOL 10 MG/ML 20 ML VIAL IV ONE (07:11)
[2021-11-10] MEDS ORDERED: NEOSTIGMINE 1 MG/ML 10 ML VIAL ONE (07:11)
[2021-11-10] MEDS ORDERED: HYDROmorphone (PF) 1 MG/ML ONE (07:11)
[2021-11-10] MEDS ORDERED: KETOROLAC 15 MG/ML 1 ML VIAL ONE (07:11)
[2021-11-10] MEDS ORDERED: fentaNYL (PF) 50 MCG/ML 2 ML AMP ONE (07:11)
[2021-11-10] MEDS ORDERED: ROCURONIUM 10 MG/ML (5 ML VIAL) IV ONE (07:11)
[2021-11-10] MEDS ORDERED: GLYCOPYRROLATE 0.2 MG/ML 2 ML VIAL ONE (07:11)
[2021-11-10] MEDS ORDERED: MIDAZOLAM 2 MG/2 ML VIAL ONE (07:11)
[2021-11-10] MEDS ORDERED: SODIUM CHLORIDE 0.9% (PF) 10 ML VIAL ONE (07:11)
[2021-11-10] MEDS ORDERED: LIDOCAINE 1% INJ 10MG/ML (20 ML MDV) ONE (07:11)
--- NOTE | 2021-11-10 07:46 | P.ANPRN ---
Procedure Note - Anesthesia - Nerve Block Performed Bilateral Erector Spinae Single Time Out Performed: Yes ([id number]) Date of Procedure: 11/10/21 Procedure Start Time: 06:59 Procedure Stop Time: 07:02 Indication: Acute Post-Operative Pain, Requested by Surgeon Specifically requested for management of pain by DrGilma: Marilu Hunter Sedation Type: Sedate with meaningful contact maintained Preparation: Sterile Prep Position: Prone Catheter: None Needle Types: Pajunk Needle Gauge: 21 Ultrasound used to visualize needle placement: Yes Ultrasound used to observe medication spread: Yes Injectate: 0.5% Ropivacaine (see comment for volume) (15cc 15cc nacl pf) Blood Aspirated: No Pain Paresthesia on Injection Noted: No Resistance on Injection: Normal Image Stored and Saved: Yes Events: Uneventful and Well Tolerated
[2021-11-10] MEDS ORDERED: BUPIVACAINE (PF) 0.25% 30 ML VIAL SQ ONE (08:09)
--- NOTE | 2021-11-10 09:11 | P.OP ---
Date of Procedure: 11/10/21 Preoperative Diagnosis: 1. Menorrhagia Postoperative Diagnosis: 1. Menorrhagia 2. Pelvic adhesions Procedure(s) Performed: Total laparoscopic hysterectomy bilateral salpingectomy and lysis of adhesions using da Gian and diagnostic cystoscopy Anesthesia: RIKA Surgeon: Marilu Hunetr Certified Phlebotomy Technician #1: Delilah Choudhury Estimated Blood Loss (ml): 50 IV fluids (ml): 600 Urine output (ml): 200 Pathology: other (Uterus, cervix, bilateral fallopian tubes) Condition: stable Disposition: PACU Operative Findings: Extensive pelvic adhesions, ovaries noted to be scarred to the sidewall and bowel Description of Procedure: Patient taken the operating room where general anesthesia was obtained without difficulty. She is prepped and draped in normal sterile fashion dorsal lithotomy position, legs placed in the Chas stirrups. Weighted speculum placed in the vagina and the anterior lip the cervix was grasped with single-tooth tenaculum. The uterus sounded to 8 cm and the cervix diameter was 3.5 cm. The appropriate manipulator tip and ring were placed on the Meera manipulator. The Meera manipulator was then placed in the uterus. Solis catheter was also placed. Attention was then turned to the abdomen and gloves were changed. A 5 mm supraumbilical incision was made the scalpel and a 5 mm optical trocar was placed under direct visualization. 10 cm to the right of this and 2 cm down a 5 mm incision was made and 8 mm da Gian port was placed under direct visualization. Same measurements on the opposite side of the patient's abdomen, the 5 mm incision was made and 8 mm da Gian port was placed under direct visualization. In the left upper quadrant a 10 mm incision was made and a 10 mm optical trocar was placed under direct visualization. The 5 mm optical trocar was then replaced with the 8 mm da Gian camera port. The robot was docked on patient's right side. The camera was introduced and then the monopolar curved scissor and [place] bipolar placed under direct visualization. I broke scrub and went to the physician console. The left mesosalpinx was cauterized with the [place] bipolar and cut with monopolar curved scissors to free the left fallopian tube which was then delivered through the assistant corporate secretary port. The left utero ovarian ligament and round ligament were cauterized with the [place] bipolar and cut with monopolar curved scissors. The posterior leaf of the broad ligament was taken down using the monopolar curved scissors. Anterior leaf of the broad ligament was then taken down using the monopolar curved scissors. The uterine artery was cauterized with the [place] bipolar and cut with monopolar curved scissors. The bladder flap was then started using the monopolar curved scissors. Attention was then turned to the right side of the patient's anatomy and the right mesosalpinx was cauterized with the [place] bipolar and cut with monopolar curved scissors to free the right fallopian tube which was then delivered through the assistant corporate secretary port. The right utero-ovarian ligament and round ligament were cauterized with the [place] bipolar and cut with monopolar curved scissors. Posterior leaf of the broad ligament was taken down using the monopolar curved scissors and the anterior leaf was taken down using the monopolar curved scissors. The uterine artery was cauterized the [place] bipolar cut with monopolar curved scissors. The bladder flap was then finished on this side. Anterior colpotomy was made using the monopolar curved scissors. The rest of the uterus was from the vaginal cuff by following the ring around with the monopolar curved scissors through the uterosacral ligaments back to the anterior portion. Once the uterus and cervix were amputated they were pulled through the vaginal cuff. Hemostasis was assured. The instruments were changed for the Cardier forcep and the cary suture cut. The vaginal cuff was then closed using O Vicryl suture in 4 different [id number] stitches. Hemostasis was again assured and the pelvis was irrigated. All instruments were removed from the abdomen and the robot was undocked. I scrubbed back in to perform a cystoscopy. There were jets from right ureteral orifice, but not the left. KUB will be ordered in recovery. The abdominal incisions were closed with 4-0 Vicryl in a subcuticular fashion. Patient tolerated the procedure well, sponge and instrument counts correct 2 and she was taken to recovery room in stable condition condition
[2021-11-10] MEDS ORDERED: LACTATED RINGERS 1,000 ML IV ONE (09:12)
--- NOTE | 2021-11-10 12:00 | CT ---
EXAMINATION TYPE: CT abdomen pelvis wo/w con DATE OF EXAM: 11/10/2021 HISTORY: ? Damage to left ureter during surgery/hysterectomy. Pain and nausea. CT DLP: 4884.9mGycm Automated Exposure Control for Dose Reduction was Utilized. CONTRAST: CT scan of the abdomen and pelvis is performed without oral and without and with IV Contrast, patient injected with 100 ml mL of Isovue 300. COMPARISON: Prior CT May 24, 2021 FINDINGS: LUNG BASES: Trace dependent effusion and associated moderate compressive atelectasis. LIVER/GB: No significant abnormality is appreciated. PANCREAS: No significant abnormality is seen. SPLEEN: No significant abnormality is seen. ADRENALS: No significant abnormality is seen. KIDNEYS: There is Solis catheter decompressing the bladder. Postcontrast images show symmetric cortic al medullary uptake but delayed excretion from the left kidney with persistent nephrogram noted on th e delayed images. No concerning solid or cystic mass either kidney. Right kidney shows normal excreti on without hydronephrosis. Small amount of urine is building up in the bladder after 30 minutes of. N o definitive extravasation of contrast. No definitive increasing fluid in the pelvis. Small amount of free fluid in the pelvis is unchanged from initial images. Patient could not tolerate longer repeat imaging. BOWEL: Incidental normal-appearing appendix. UTERUS/ADNEXA: Uterus surgically absent. Both ovaries remain present. Left ovary has 2 adjacent near 2.0 cm low dense lesions probable simple cysts. LYMPH NODES: No greater than 1cm abdominal or pelvic lymph nodes are appreciated. OSSEOUS STRUCTURES: No significant abnormality is seen. OTHER: No significant additional abnormality is seen. IMPRESSION: Abnormal study. Delayed excretion left kidney. Asymmetric persistent nephrogram. Findings could reflect shock kidney. Despite lack of active extravasation or increasing retroperitoneal fluid , ureter injury cannot be excluded.
[2021-11-10] MEDS ORDERED: SIMETHICONE 80 MG CHEWABLE PO PRN (12:27)
[2021-11-10] MEDS ORDERED: ONDANSETRON 4 MG/2 ML VIAL IVP PRN (12:27)
[2021-11-10] MEDS ORDERED: Acetaminophen-Codeine 300-30mg TAB PO PRN (12:27)
[2021-11-10] MEDS: KETOROLAC 15 MG/ML 1 ML VIAL IVP PRN ×2 (15:09→22:56)
[2021-11-10] MEDS ORDERED: METOCLOPRAMIDE 5 MG/ML 2 ML VIAL IM PRN (17:43)
[2021-11-10] MEDS: METOCLOPRAMIDE 5 MG/ML 2 ML VIAL IVP SCH (18:01)
[2021-11-10] MEDS: SENNOSIDES-DOCUSATE SODIUM 1 EACH TAB PO SCH (19:56)
[2021-11-10] MEDS: Acetaminophen-Codeine 300-30mg TAB PO PRN (19:57)
[2021-11-11] MEDS: METOCLOPRAMIDE 5 MG/ML 2 ML VIAL IVP SCH ×4 (01:09→19:09)
[2021-11-11] MEDS: Acetaminophen-Codeine 300-30mg TAB PO PRN ×2 (02:02→08:20)
[2021-11-11] MEDS: KETOROLAC 15 MG/ML 1 ML VIAL IVP PRN ×2 (05:06→11:18)
[2021-11-11] MEDS: LACTATED RINGERS 1,000 ML IV SCH (06:52)
[2021-11-11 08:12] LABS: Basophils % (A) 0 %; Eosinophils # (A) 0.1 k/uL (0-0.7); Eosinophils % (A) 1 %; HCT 36.2 % (34.0-46.0); HGB 11.2 gm/dL (11.4-16.0); Lymphocytes # (A) 3.1 k/uL (1.0-4.8); Lymphocytes % (A) 29 %; MCH 26.7 pg (25.0-35.0); MCHC 31.1 g/dL (31.0-37.0); Mean Platelet Volume 8.2; Monocytes # (A) 0.5 k/uL (0-1.0); Monocytes % (A) 5 %; Neutrophils # (A) 6.9 k/uL (1.3-7.7); Neutrophils % (A) 65 %; Platelet Count 279 k/uL (150-450); RBC 4.21 m/uL (3.80-5.40); RDW 14.5 % (11.5-15.5); WBC 10.7 k/uL (3.8-10.6)
[2021-11-11] MEDS: SENNOSIDES-DOCUSATE SODIUM 1 EACH TAB PO SCH (08:20)
--- NOTE | 2021-11-11 09:08 | P.PN ---
Progress Note - Text Progress Note Date: 11/11/21 Status post total laparoscopic hysterectomy bilateral salpingectomy using da Gian. Postop day #1 Patient seen and examined. Denies nausea, vomiting, chest pain, shortness of breath or any calf pain. She's feeling very well this morning and tolerated it pink a breakfast. We did speak about the possible injury to her left ureter. The computed tomography scan does not show adequate excretion from the left kidney to clearly show that there is no injury to the left ureter. A consult with Dr. Kei Stone who is recommending retrograde filling to see if there is any damage. Had a long discussion with the patient about this and no she is tearful she understands. We identified the issue her airway and will address it. Vital signs stable Incisions clean, dry, intact Assessment 1 status post TLHBSO using da Gian postop day #1 with possible damage the left ureter Plan 1. Continue postoperative care 2. Nothing by mouth 3. Dr Robertson to speak with patient about his procedure to diagnose whether there is a ureter injury
[2021-11-11] MEDS ORDERED: ACETAMINOPHEN TAB 325 MG TAB PO PRN (09:13)
--- NOTE | 2021-11-11 12:09 | P.GSCN ---
History of Present Illness Consult date: 11/11/21 Reason for Consult: Possible left ureteral injury History of present illness: This is a 36-year-old female POD #1 S/P Status post laparoscopic hysterectomy bilateral salpingectomy for menorrhagia by Dr. Hunter. No ureteral jet was observed on the left side post surgery. She underwent a CT abdomen and pelvis yesterday that showed evidence of delayed nephrogram from the left kidney. No evidence of contrast extravasation but no contrast is seen in the distal or mid ureter. Denies any flank pain gross hematuria or dysuria. No previous history of kidney stones or any previous bladder or renal surgery. This morning she denies any flank pain. Her creatinine is 0.9 from a baseline of 0.7-0.8. 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 MENSES WITH ENDOMETRIOSIS History of Any Multi-Drug Resistant Organisms: None Reported Past Surgical History: Uterine Ablation Additional Past Surgical History / Comment(s): U/A 05/2021- Past Anesthesia/Blood Transfusion Reactions: No Reported Reaction Past Psychological History: No Psychological Hx Reported Smoking Status: Never smoker Past Alcohol Use History: Occasional Past Drug Use History: None Reported - Past Family History Mother Family Medical History: Cancer Father Family Medical History: No Reported History Medications and Allergies Home Medications Medication Instructions Recorded Confirmed Type No Known Home Medications 11/06/21 11/10/21 History Allergies Allergy/AdvReac Type Severity Reaction Status Date / Time No Known Allergies Allergy Verified 11/10/21 06:03 Surgical - Exam Vital Signs Temp Pulse Resp BP Pulse Ox 97.8 F 76 18 133/76 96 11/10/21 06:09 11/10/21 06:09 11/10/21 06:09 11/10/21 06:09 11/10/21 06:09 - General no distress, no pain - Eyes normal ocular movement, no pale - ENT normal nares, normal mucosa - Respiratory normal expansion, normal respiratory effort - Abdomen Abdomen: soft, non tender - Genitourinary No left CVA tenderness - Psychiatric oriented to time, oriented to person, oriented to place Results - Labs 11/11/21 07:43 Abnormal Lab Results - Last 24 Hours (Table) 11/11/21 Range/Units 07:43 WBC 10.7 H (3.8-10.6) k/uL Hgb 11.2 L (11.4-16.0) gm/dL - Imaging CT scan - abdomen: image reviewed (There is delayed nephrogram on the left kidney compared to the right, I see contrast in the proximal ureter but no contrast in the distal or mid ureter. No evidence of contrast extravasation. But the study didn't include adequate delayed imaging, difficult to assess possibility of ureteral injury) Assessment and Plan Assessment: 36-year-old female postop day #1 status post a robotic hysterectomy by Dr. Hunter. Intraoperatively no ureteral jet was seen from the left ureteral orifice. Underwent CT abdomen pelvis yesterday which showed delayed nephrogram phase on left kidney, there was contrast in the proximal ureter but no contrast in the distal or mid ureter. No evidence of contrast extravasation. But the study didn't include adequate delayed imaging, difficult to assess possibility of ureteral injury. Discussed with her given the poor quality of the image I cannot rule out a ureteral injury. But given the asymmetry between the left and the right kidney and the lack of ureteral jets I recommend proceeding with retrograde pyelogram. Discussed with her if the retrograde pyelogram is normal then no further intervention is needed. But if the retrograde pyelogram shows evidence of narrowing along the distal ureter or any degree of kinking then we'll attempt a stent placement. But it is significant extravasation or complete blockage then she will need a ureteral reimplant. Discussed with her the goal for today would be for diagnostic purposes and if she does need a ureteral reimplant then we'll plan on performing that tomorrow we'll attempt to do it robotically but discussed the possibility of needing to convert to open. I discussed with her at this time it's difficult for me to assess if there is any injury and the exact location of the injury.
[2021-11-11] MEDS ORDERED: IV FLUID CONTINUATION 1,000 ML IV ONE (15:11)
[2021-11-11] MEDS ORDERED: DEXAMETHASONE SOD PHOSPHATE 4 MG/ML 1 ML VIAL IVP ONE (15:47)
[2021-11-11] MEDS ORDERED: ONDANSETRON 4 MG/2 ML VIAL IVP ONE (15:47)
[2021-11-11] MEDS ORDERED: SCOPOLAMINE 1 MG/72 HR PATCH TRANSDERM ONE (15:48)
[2021-11-11] MEDS ORDERED: METOCLOPRAMIDE 5 MG/ML 2 ML VIAL IVP ONE (15:58)
[2021-11-11] MEDS ORDERED: FAMOTIDINE 20 MG/2 ML VIAL IVP ONE (15:58)
[2021-11-11] MEDS ORDERED: MIDAZOLAM 2 MG/2 ML VIAL IVP ONE (16:00)
[2021-11-11] MEDS ORDERED: LIDOCAINE 1% INJ 10MG/ML (20 ML MDV) ONE (16:01)
[2021-11-11] MEDS ORDERED: fentaNYL (PF) 50 MCG/ML 2 ML AMP ONE (16:01)
[2021-11-11] MEDS ORDERED: PROPOFOL 10 MG/ML 20 ML VIAL IV ONE (16:01)
[2021-11-11] MEDS ORDERED: SUCCINYLCHOLINE CHLORIDE 100 MG/5 ML SYR IV ONE (16:01)
[2021-11-11] MEDS ORDERED: SODIUM CHLORIDE 0.9% 50 ML with ceFAZolin 2,000 MG IV ONE ×2 (16:05)
[2021-11-11] MEDS ORDERED: LACTATED RINGERS 800 ML IV ONE (16:05)
[2021-11-11] MEDS ORDERED: IOPAMIDOL-370 50ML BTL MISCELLANE ONE (16:18)
--- NOTE | 2021-11-11 16:43 | P.OP ---
Date of Procedure: 11/11/21 Preoperative Diagnosis: left hydronephrosis Postoperative Diagnosis: same Procedure(s) Performed: Cystoscopy, left retrograde pyelogram and stent insertion Implants: 6-Italian by 26 cm stent in the left ureter Anesthesia: RIKA Surgeon: Wu Robertson Estimated Blood Loss (ml): 1 Pathology: none sent Condition: stable Disposition: PACU Indications for Procedure: 36-year-old female postop day #1 status post a robotic hysterectomy by Dr. Hunter. Intraoperatively no ureteral jet was seen from the left ureteral orifice. Underwent CT abdomen pelvis yesterday which showed delayed nephrogram phase on left kidney, there was contrast in the proximal ureter but no contrast in the distal or mid ureter. No evidence of contrast extravasation. But the study didn't include adequate delayed imaging, difficult to assess possibility of ureteral injury. Discussed with her given the poor quality of the image I cannot rule out a ureteral injury. But given the asymmetry between the left and the right kidney and the lack of ureteral jets I recommend proceeding with retrograde pyelogram. Discussed with her if the retrograde pyelogram is normal then no further intervention is needed. But if the retrograde pyelogram shows evidence of narrowing along the distal ureter or any degree of kinking then we'll attempt a stent placement. But it is significant extravasation or complete blockage then she will need a ureteral reimplant. Discussed with her the goal for today would be for diagnostic purposes and if she does need a ureteral reimplant then we'll plan on performing that tomorrow we'll attempt to do it robotically but discussed the possibility of needing to convert to open. I discussed with her at this time it's difficult for me to assess if there is any injury and the exact location of the injury. Operative Findings: Left retrograde pyelogram demonstrated evidence of narrowing and a kink in the distal ureter approximately 4 cm from the UVJ, with proximal dilation mild hydronephrosis Description of Procedure: Patient was brought to the operating room, general anesthesia was induced. She was prepped and draped in sterile fashion and placed in dorsal lithotomy position. A cystoscopy fitted with a 22-Italian sheath was inserted per urethra, cystoscopy was performed which showed no abnormality within the bladder. The right ureteral orifice was visualized and there was clear effluxed seen. Attention was then carried to the left ureteral orifice, no efflux was seen. At this time I intubated the ureteral orifice with a open-ended catheter, retrograde pyelogram was performed which showed evidence of narrowing at the distal ureter 4 centimeter from the UVJ with proximal dilation. But contrast was able to pass past the narrowing and all the way up to the kidney. no evide nce of contrast extravasation. There was mild mild dilation of the ureter and the collecting system. At this time the open-ended catheter was removed and delayed imaging was obtained. Delayed imaging showed contrast not draining past the narrowing. At this time a sensor wire was advanced through the scope and up the left ureteral orifice and into the kidney. Next a ureteral stent was passed over the wire, the proximal curl was visualized on fluoroscopy and the distal curl was visualized using the cystoscope. There was evidence of a hydronephrotic drip upon stent insertion. At this time the bladder was emptied at the end of the case. Patient tolerated the procedure well was taken to recovery in stable condition. We'll plan on keeping the stent for 3-4 weeks
[2021-11-11 17:47] VITALS: RESP 18; TEMP 98.1
[2021-11-11 19:03] VITALS: BP 120/78; PULSE 68
--- NOTE | 2021-11-12 05:39 | FL ---
EXAMINATION TYPE: FL urography retrograde DATE OF EXAM: 11/11/2021 COMPARISON: CT abdomen and pelvis one day earlier HISTORY: Left ureter injury during surgery. TECHNIQUE: Fluoroscopy. FINDINGS: Fluoroscopic guidance was provided during retrograde urogram procedure performed by urolog ist. A total of 61.8 seconds of fluoroscopic time was utilized during the procedure and 1 spot image s was acquired. Intraoperative image shows accessed via left UVJ with contrast injection of distal ur eter. IMPRESSION: As Above.
== END 2021-11-11 18:50 | disposition home or self-care (01) | DRG 749 ==
LOC: OR 05:33 → 4FBP 09:09 → OR 23:03 → OBSVTOIN 11-11 17:02
PROVIDERS: ADMIT Obstetrics & Gynecology; ATTEND Obstetrics & Gynecology
PROC: 8E0W4CZ Robotic Assisted Procedure of Trunk Region, Percutaneous Endoscopic Approach (ICD-10-PCS; principal; 2021-11-10 07:15)
PROC: 0TJB8ZZ Inspection of Bladder, Via Natural or Artificial Opening Endoscopic (ICD-10-PCS; principal; 2021-11-10 07:15)
PROC: 0UT74ZZ Resection of Bilateral Fallopian Tubes, Percutaneous Endoscopic Approach (ICD-10-PCS; principal; 2021-11-10 07:15)
PROC: 0UT24ZZ Resection of Bilateral Ovaries, Percutaneous Endoscopic Approach (ICD-10-PCS; principal; 2021-11-10 07:15)
PROC: 0DNW4ZZ Release Peritoneum, Percutaneous Endoscopic Approach (ICD-10-PCS; principal; 2021-11-10 07:15)
PROC: 0UT94ZZ Resection of Uterus, Percutaneous Endoscopic Approach (ICD-10-PCS; principal; 2021-11-10 07:15)
PROC: BT1F1ZZ Fluoroscopy of Left Kidney, Ureter and Bladder using Low Osmolar Contrast (ICD-10-PCS; 2021-11-11 16:00)
PROC: 0T778DZ Dilation of Left Ureter with Intraluminal Device, Via Natural or Artificial Opening Endoscopic (ICD-10-PCS; 2021-11-11 16:00)
DX: N99.85 Post endometrial ablation syndrome (principal); N13.30 Unspecified hydronephrosis; N13.1 Hydronephrosis with ureteral stricture, not elsewhere classified; N92.0 Excessive and frequent menstruation with regular cycle; N73.6 Female pelvic peritoneal adhesions (postinfective); Z86.19 Personal history of other infectious and parasitic diseases; Z80.9 Family history of malignant neoplasm, unspecified
CPT/HCPCS: 64999; 74178; 74420; 81025; 85025; 86850; 86900; 86901; 88307

== ENCOUNTER → 2022-02-07 | Outpatient (CLI) | payer MEDICAID ==
[~2022-02-07] MED LIST changes: -DEXAMETHASONE SOD PHOSPHATE 4 MG/ML 1 ML VIAL IV ONE; +FUROSEMIDE 10 MG/ML 2 ML VIAL IV STA; -HYDROmorphone 0.5 MG/0.5 ML SYRINGE IVP PRN; -LACTATED RINGERS 1,000 ML IV SCH; -LIDOCAINE 1% (10MG/ML) FOR IV START INTRADERMA PRN; -MIDAZOLAM 2 MG/2 ML VIAL IV PRN; -ONDANSETRON 4 MG/2 ML VIAL IVP ONE
--- NOTE | 2022-02-08 09:27 | NM ---
EXAMINATION TYPE: NM lasix renogram DATE OF EXAM: 02/07/2022 COMPARISON: NONE CLINICAL INDICATION:Female, 36 years old with history of N13.30 Hydronephrosis Left Side; Following administration of 10.1 mCi Tc 99m MAG3 with 20mg Lasix. Immediate images post injection FINDINGS: Left: 52.0 %. (Normal is within 10% of each other) Right: 48.0 %. (Normal is within 10% of each other) Max renal flow left: 3.0 minutes. (Normal: peak by 5 minutes). Max renal flow right: 4.5 minutes.(Normal: peak by 5 minutes). Satisfactory accumulation of radiotracer within both renal collecting systems. After the administrati on of Lasix, there is prompt excretion from both collecting systems. T 1/2 left: 13.6 minutes. (Normal range 10-15 min). T 1/2 right: 13.2 minutes. (Normal range 10-15 min). IMPRESSION: 1. Unremarkable Lasix renogram 2. Quantitative analysis as above.
== END | disposition home or self-care (01) ==
LOC: RADNMMAIN 12:54
PROVIDERS: ATTEND Urology
DX: N13.30 Unspecified hydronephrosis (principal)
CPT/HCPCS: 78708; A9562